=== PATIENT | female | born 1960 | race Caucasian/White ===

== ENCOUNTER → 2019-04-16 | Outpatient (CLI) | payer BC | END | disposition home or self-care (01) | LOC: LAB SHORT 08:24 → PLD 08:24 | DX: D48.5 Neoplasm of uncertain behavior of skin (principal) | CPT/HCPCS: 88305 ==

== ENCOUNTER 2020-08-25 08:18 | Day surgery (SDC) | payer BC | END 2020-08-25 23:01 | disposition home or self-care (01) | LOC: MOI US 08:18 → MOI MAM 08:45 → MOI US 08:45 | DX: N62 Hypertrophy of breast (principal) | CPT/HCPCS: 19083; 77065; 88305; 88342; A4648 ==

== ENCOUNTER 2021-11-05 11:57 | Day surgery (SDC) | payer BC ==
[~2021-11-05] VITALS: Ht 180.3 cm; Wt 81.7 kg
[~2021-11-05 11:57] MED LIST: MULVITA PO; THERA-D2000 UNIT PO; TUMS500 MG PO
--- NOTE | 2021-11-05 12:48 | NUR ---
History, Chart, Medications and Allergies reviewed before start of procedure. Patient confirms NPO status and agrees with scheduled surgery. Reports taking all of colon prep with clear results. Patient States Post-Procedure ride home has been arranged with her , Gage.
--- NOTE | 2021-11-05 14:13 | NUR ---
11/05/21 1413 Cayla Velasquez History, Chart, Medications and Allergies reviewed before start of procedure. Patient confirms NPO status and agrees with scheduled surgery. 3-LEAD EKG REVIEWED WITH PHYSICIAN PRIOR TO START OF PROCEDURE. MONITOR INTACT WITH CONTINUOUS PULSE OXIMETRY AND INTERMITTENT BP. PATIENT DETERMINED TO BE ASA APPROPRIATE FOR PROPOFOL SEDATION PRIOR TO START OF PROCEDURE BY
--- NOTE | 2021-11-05 14:37 | NUR ---
Discharge instructions reviewed with patient. Patient verbalizes understanding. Copy given to patient to take home.
--- NOTE | 2021-11-05 14:50 | NUR ---
Discharged via wheelchair to private car for ride home.
== END 2021-11-05 14:50 | disposition home or self-care (01) ==
LOC: ORSCMMR 11:57 → ORD 13:30 → ORSCMMR 14:50
PROVIDERS: Surgery
PROC: 0DBN8ZX Excision of Sigmoid Colon, Via Natural or Artificial Opening Endoscopic, Diagnostic (ICD-10-PCS; principal; 2021-11-05 13:30)
DX: Z12.11 Encounter for screening for malignant neoplasm of colon (principal); K63.5 Polyp of colon; E55.9 Vitamin D deficiency, unspecified; F17.210 Nicotine dependence, cigarettes, uncomplicated; Z79.899 Other long term (current) drug therapy
CPT/HCPCS: 88305; J2704; J7120

== ENCOUNTER 2022-02-15 10:34 | Inpatient (IN) | payer OTHER, BC ==
[~2022-02-15] VITALS: Ht 180.3 cm; Wt 83.7 kg
[2022-02-15 12:14] LABS: BASOPHILS ABSOLUTE AUTO 0.04 K/mm3 (0.00-0.23); BASOPHILS PERCENT AUTO 1 % (0-2); EOSINOPHILS ABSOLUTE AUTO 0.12 K/mm3 (0.00-0.68); EOSINOPHILS PERCENT AUTO 2 % (0-6); Hemoglobin 13.6 g/dL (11.5-16.0); IMMATURE GRAN ABSOLUTE AUTO 0.03 K/mm3 (0.00-0.10); IMMATURE GRAN PERCENT AUTO 0 % (0-1); LYMPHOCYTES ABSOLUTE AUTO 1.23 K/mm3 (0.84-5.20); LYMPHOCYTES PERCENT AUTO 17 % (21-46); MONOCYTES ABSOLUTE AUTO 0.51 K/mm3 (0.16-1.47); MONOCYTES PERCENT AUTO 7 % (4-13); Mean Corpuscular HGB 30.6 pg (26.0-34.0); Mean Corpuscular Volume 90 fL (80-100); NEUTROPHILS ABSOLUTE AUTO 5.29 K/mm3 (1.96-9.15); NEUTROPHILS PERCENT AUTO 73 % (41-73); Platelet Count 214 K/mm3 (150-400); RDW Coefficient Variation 12.8 % (11.7-14.2); RDW Standard Deviation 42.6 fL (35.1-46.3); Red Blood Cell Count 4.45 M/mm3 (3.80-5.20); White Blood Cell Count 7.22 K/mm3 (4.00-11.30)
[2022-02-15 13:05] LABS: Albumin, Blood 3.3 g/dL (3.4-5.0); Bilirubin, Total 0.6 mg/dL (0.1-1.0); Bun/Creatinine Ratio 23.6 (12.0-20.0); Calcium, Blood 8.6 mg/dL (8.5-10.1); Creatinine, Blood 0.47 mg/dL (0.40-1.00); Globulin, Blood 3.4 g/dL (2.2-4.0); Potassium, Blood 3.3 mmol/L (3.5-5.5); Total Protein, Blood 6.7 g/dL (6.4-8.2)
[2022-02-15 17:07] LABS: Source, Urine Foley catheter
[2022-02-15 17:10] LABS: Appearance, Urine Clear (Clear); Bilirubin, Urine Neg (Neg); Blood, Urine 4+ (Neg); Color, Urine Yellow (P-Yellow); Glucose Qualitative, Urine Neg (Neg); Ketones, Urine 1+ (Neg); Leukocyte Esterase, Urine Neg (Neg); Nitrite, Urine Neg (Neg); Protein, Urine Neg (Neg); Specific Gravity, Urine 1.015 (1.003-1.022); Urobilinogen, Urine NORM (Normal)
[2022-02-15 17:22] LABS: Bacteria Few /hpf; Mucus Light (0-Heavy); Red Blood Cells, Urine 25-50 /hpf (0-2); Squamous Epithelial Cells Rare /hpf (Few); White Blood Cells, Urine 0-2 /hpf (0-5)
--- NOTE | 2022-02-15 19:24 | NUR ---
SHIFT SUMMARY PATIENT NEW ADMIT TO UNIT FROM ER. FELL AT HOME 2 DAYS AGO. WENT TO , XRAYS WERE TAKEN AND PATIENT WAS SENT HOME. CALLED PATIENT THIS AM AND INFORMED HER SHE HAD A LEFT HIP FX AND TO GO TO ER. ALERT AND ORIENTED. TOLERATING REGULAR DIET AND LIQUIDS. IV FLUIDS RUNNING. SEGAL PLACED. PATIENT RATES PAIN 1-2/10. DECLINES NEED FOR PAIN MEDS AT THIS TIME. SPOUSE ATTENTIVE IN ROOM. EKG DONE, CT SCAN DONE, URINE SAMPLE SENT TO LAB. PLAN FOR LEFT HIP PINNING WITH DR BELTRÁN TOMORROW 02/16/22 AT 1230. NPO AFTER MIDNIGHT. REPORT GIVEN TO MICROFILMER RN.
--- NOTE | 2022-02-16 05:26 | NUR ---
SHIFT SUMMARY: PT C/O MINIMAL PAIN T/O THE SHIFT. PT COMPLAINED THAT SHE HAD A HARD TIME GETTING REST DUE TO "HAVING A DIFFICULT TIME GETTING COMFORTABLE." PAIN WELL MANAGED WITH EMAR ORDERS SCHEDULED. CATHETER REMAINS IN PLACE AND IS PATENT AND DRAINING WELL TO GRAVITY. PT EDUCATED ON PAIN MANAGEMENT AND ENCOURAGED TO USE THE CALL LIGHT WHEN EXPERIENCING PAIN. PT SEEMED RECEPTIVE. PLANS FOR SURGERY TODAY. NPO SINCE MIDNIGHT.
[2022-02-16 05:48] LABS: Hematocrit 39.1 % (33.0-51.0); Hemoglobin 13.3 g/dL (11.5-16.0); Mean Corpuscular HGB 30.4 pg (26.0-34.0); Mean Corpuscular Volume 90 fL (80-100); Platelet Count 218 K/mm3 (150-400); RDW Coefficient Variation 12.7 % (11.7-14.2); RDW Standard Deviation 41.9 fL (35.1-46.3); Red Blood Cell Count 4.37 M/mm3 (3.80-5.20); White Blood Cell Count 5.68 K/mm3 (4.00-11.30)
[2022-02-16 05:58] LABS: Bun/Creatinine Ratio 21.1 (12.0-20.0); Calcium, Blood 8.6 mg/dL (8.5-10.1); Creatinine, Blood 0.43 mg/dL (0.40-1.00); Magnesium, Blood 1.9 mg/dL (1.6-2.4); Potassium, Blood 3.4 mmol/L (3.5-5.5)
[2022-02-16 08:11] LABS: SARS-Cov-2 (COVID-19) PCR, MMC NEGATIVE (NEGATIVE)
--- NOTE | 2022-02-16 11:54 | NUR ---
PT TAKEN TO DAY SURGERY AT THIS TIME.
--- NOTE | 2022-02-16 13:26 | NUR ---
02/16/22 1325 Delisa Levine PATIENT ARRIVED TO OR WITH SEGAL CATHETER IN PLACE DRAINING YELLOW URINE.
--- NOTE | 2022-02-16 15:45 | NUR ---
PT ARRIVED BACK TO THE ROOM AT APPROXIMATELY 1540. PT ALERT AND ORIENTED BUT COMPLAINING OF 10/10 PAIN. L HIP DRESSING C/D/I. PEDAL AND TIBIAL PULSES PRESENT AND PALPABLE. CAP REFIL WNL. PT'S AT THE BEDSIDE FOR SUPPORT.
--- NOTE | 2022-02-16 19:22 | NUR ---
SHIFT SUMMARY PT IS POD#0 FROM L HIP PINNING WITH DR. BELTRÁN. VSS POST OP. PAIN MANAGED WITH PO PAIN MEDICATION. PT IS TOLERATING PO. PT GIVEN POST OP EDUCATION. REPORT GIVEN TO CHRISTOPH PETERS.
[2022-02-17 04:52] LABS: BASOPHILS ABSOLUTE AUTO 0.01 K/mm3 (0.00-0.23); BASOPHILS PERCENT AUTO 0 % (0-2); EOSINOPHILS ABSOLUTE AUTO 0.01 K/mm3 (0.00-0.68); EOSINOPHILS PERCENT AUTO 0 % (0-6); Hematocrit 37.9 % (33.0-51.0); Hemoglobin 12.8 g/dL (11.5-16.0); IMMATURE GRAN ABSOLUTE AUTO 0.05 K/mm3 (0.00-0.10); IMMATURE GRAN PERCENT AUTO 1 % (0-1); LYMPHOCYTES ABSOLUTE AUTO 0.92 K/mm3 (0.84-5.20); LYMPHOCYTES PERCENT AUTO 11 % (21-46); MONOCYTES ABSOLUTE AUTO 0.57 K/mm3 (0.16-1.47); MONOCYTES PERCENT AUTO 7 % (4-13); Mean Corpuscular HGB 30.5 pg (26.0-34.0); Mean Corpuscular HGB Conc 33.8 g/dL (31.5-36.5); Mean Corpuscular Volume 91 fL (80-100); NEUTROPHILS PERCENT AUTO 82 % (41-73); Platelet Count 229 K/mm3 (150-400); RDW Coefficient Variation 12.5 % (11.7-14.2); RDW Standard Deviation 41.5 fL (35.1-46.3); Red Blood Cell Count 4.19 M/mm3 (3.80-5.20); White Blood Cell Count 8.76 K/mm3 (4.00-11.30)
[2022-02-17 05:11] LABS: Albumin, Blood 2.8 g/dL (3.4-5.0); Anion Gap 6 mmol/L (6-16); Blood Urea Nitrogen 11 mg/dL (8-24); Bun/Creatinine Ratio 25.3 (12.0-20.0); CO2, Blood 27 mmol/L (21-32); Calcium, Blood 8.5 mg/dL (8.5-10.1); Chloride, Blood 110 mmol/L (98-108); Creatinine, Blood 0.44 mg/dL (0.40-1.00); Glomerular Filtration Rate 111 (60-); Glucose, Blood 112 mg/dL (70-99); Phosphorus, Blood 3.5 mg/dL (2.5-4.9); Potassium, Blood 4.1 mmol/L (3.5-5.5); Sodium, Blood 143 mmol/L (136-145)
--- NOTE | 2022-02-17 05:20 | NUR ---
SHIFT SUMMARY: PT SLEPT COMFORTABLY T/O THE SHIFT. DID NOT COMPLAIN OF PAIN. A&OX4. VERY PLEASANT. SEGAL CATHETER IS PATENT AND DRAINING TO GRAVITY. TOLERATING PO FLUIDS AND FOOD. DENIES NAUSEA. AQUACEL X1 IN PLACE ON L HIP. LIGHT EXUDATE NOTED. PT RESTING IN BED AT THIS TIME WITH CALL LIGHT IN REACH.
--- NOTE | 2022-02-17 06:44 | NUR ---
0644 HRS: PT COUGH INCREASED. COARSE T/O LEFT SIDE, NEW. PT REPORTS COUGHING UP GREEN PHLEGM. PT DENIES CHILLS OR SOB.
[2022-02-17] MEDS ORDERED: Acetaminophen650 M1 PO (10:45)
[2022-02-17] MEDS ORDERED: MIRALAX17 GM PO (10:45)
[2022-02-17] MEDS ORDERED: Norco 5-325 Ta1 EACH PO (10:45)
--- NOTE | 2022-02-17 12:03 | NUR ---
DISCHARGE NOTE: PATIENT AND PATIENTS WERE EDUCATED ON DISCHARGE INFORMATION. BOTH VERBALIZED UNDERSTANDING OF INFORMATION. WAS GIVEN THE HARD PERSCRIPTION. IV WAS TAKEN OUT AND WNL. PAIN IS MANAGED WITH PO PAIN MEDICATIONS. LEFT HIP HAS AN AQUACEL THAT IS C/D/I. DENIES NUMBNESS AND TINGLING. CAN MOVE FINGERS AND TOES. SHE IS A SBA WITH FWW AND GAIT BELT. PATIENT IS AWARE TO BE TOE TOUCH WT BEARING ON THE LEFT LEG. PATIENT TOLERATES PO INTAKE AND IS VOIDING/PASSING GAS. SHE IS DRESSED AND HAS HER PERSONAL ITEMS IN THE ROOM GATHERED. PATIENT WAS WHEELCHAIRED DOWN TO HER HUSBANDS CAR TO BE TAKEN HOME.
== END 2022-02-17 11:57 | disposition home or self-care (01) | DRG 482 ==
LOC: ER 10:34 → SURS 15:09
PROVIDERS: Family Medicine; Orthopaedic Surgery; Physician Assistant; ADMIT Internal Medicine
PROC: 0QS734Z Reposition Left Upper Femur with Internal Fixation Device, Percutaneous Approach (ICD-10-PCS; principal; 2022-02-16 12:30)
DX: S72.002A Fracture of unspecified part of neck of left femur, initial encounter for closed fracture (principal); W01.0XXA Fall on same level from slipping, tripping and stumbling without subsequent striking against object, initial encounter; E87.6 Hypokalemia; F17.210 Nicotine dependence, cigarettes, uncomplicated; E55.9 Vitamin D deficiency, unspecified; E86.0 Dehydration; Z90.710 Acquired absence of both cervix and uterus; Z20.822 Contact with and (suspected) exposure to COVID-19
CPT/HCPCS: 36415; 72192; 76377; 80048; 80053; 80069; 81001; 83735; 85025; 85027; 93005; 93010; 97116; 97162; 97530; 99284-25; A9270; C1713; C1769; J0690; J1100; J1650; J2250; J2370; J2405; J2704; J3010; J3480; J7120; U0004